=== PATIENT | female | born 1975 | race Two or more races ===

== ENCOUNTER → 2022-12-26 | Day surgery (SDC) | payer BC, MEDICAID ==
[2022-12-24 09:09] LABS: Basophils # (auto) 0 10 ^3/uL (0-0.2); Basophils % (auto) 0.4 % (0.0-2.0); Eosinophils # (auto) 0 10 ^3/uL (0-0.8); Eosinophils % (auto) 0.4 % (0.0-7.0); Hematocrit 45.1 % (36.0-46.0); Lymphocytes # (auto) 2.1 10 ^3/uL (0.4-5.4); Lymphocytes % (auto) 24.1 % (10.0-50.0); Mean Corpuscular Hemoglobin 29.6 pg (28.0-32.0); Mean Corpuscular Hgb Conc. 33.2 g/dL (32.0-36.0); Mean Corpuscular Volume 89.1 fL (80.0-100.0); Monocytes # (auto) 0.4 10 ^3/uL (0-1.3); Monocytes % (auto) 4.9 % (0.0-12.0); Neutrophils # (auto) 6.2 10 ^3/uL (1.6-8.6); Neutrophils % (auto) 70.2 % (37.0-80.0); Nucleated Red Blood Cells % 0.1 %; Red Blood Cells 5.06 10^6/uL (4.0-5.20); Red Cell Distribution Width 13.5 % (11.8-14.3); White Blood Cell 8.8 10^3/uL (4.4-10.8)
[2022-12-24 09:29] LABS: Prothrombin Time 10.3 sec (9.3-11.8)
[2022-12-24 09:30] LABS: INR 0.96 (0.9-1.15); Partial Thromboplastin Time 25.7 SEC (24.5-34.5)
[2022-12-24 09:45] LABS: Alanine Aminotransferase 21 U/L (7-40); Albumin 4.7 g/dL (3.2-4.8); Alkaline Phosphatase 44 U/L (46-116); Anion Gap 6 (5-15); Aspartate Aminotransferase 11 U/L (13-40); BUN/Creatinine Ratio 10.1 (10.0-20.0); Blood Urea Nitrogen 8 mg/dL (9-23); Calcium 9.7 mg/dL (8.5-10.1); Carbon Dioxide 29 mmol/L (20-30); Chloride 105 mmol/L (98-107); Glucose 103 mg/dL (74-106); Potassium 4.3 mmol/L (3.5-5.1); Sodium 140 mmol/L (136-145)
[2022-12-24 09:46] LABS: Bilirubin, Total 0.5 mg/dL (0.2-1.0)
[~2022-12-26] VITALS: Ht 162.6 cm; Wt 59.0 kg
[~2022-12-26] MED LIST: SODIUM CHLORIDE LOCK 10 ML ONE
[2022-12-26 13:54] VITALS: PULSE 81; RESP 15; O2SAT 99
[2022-12-26] MEDS: fentaNYL CITRATE 100 MCG/2 ML VL ONE ×3 (13:56→14:03)
[2022-12-26] MEDS: diphenhdrAMINE HCL 50 MG/1 ML VL ONE ×2 (13:56→13:59)
[2022-12-26] MEDS: MIDAZOLAM HCL 5 MG/ML-1ML VIAL ONE ×4 (13:56→14:07)
[2022-12-26 14:18] VITALS: PULSE 76; RESP 15; TEMP 98; O2SAT 95
[2022-12-26 15:03] VITALS: BP 115/71; PULSE 75; RESP 15; O2SAT 98
== END | disposition home or self-care (01) ==
LOC: GI 12:38
PROVIDERS: ATTEND Internal Medicine Gastroenterology
DX: K59.00 Constipation, unspecified (principal); Q43.8 Other specified congenital malformations of intestine; K64.8 Other hemorrhoids; Z86.010 Personal history of colon polyps
CPT/HCPCS: 36415; 45378; 80053; 81025; 85025; 85610; 85730; J1200; J2250; J3010; J7030; 99152; 99153

== ENCOUNTER 2023-01-07 10:00 | Outpatient (CLI) | payer BC, MEDICAID ==
[2023-01-08 09:50] LABS: Urine Bacteria NONE SEEN /hpf (None Seen); Urine Blood Negative /uL (Negative); Urine Clarity CLOUDY (Clear); Urine Color Yellow (Yellow); Urine Mucus FEW (None Seen); Urine Protein, UAD Negative (Negative); Urine Specific Gravity 1.025 (1.001-1.035); Urine Urobilinogen Normal (Negative); Urine WBC 42 /hpf (0 - 5); Urine WBC Clumps PRESENT /hpf (None Seen)
== END 2023-01-07 10:21 | disposition home or self-care (01) ==
LOC: LAB 10:00
PROVIDERS: ATTEND Nurse Practitioner
DX: N39.0 Urinary tract infection, site not specified (principal)
CPT/HCPCS: 81001; 87086; 87088; 87186